=== PATIENT | male | born 1990 | race Caucasian/White ===

== ENCOUNTER 2022-03-10 16:24 | Emergency (ER) | payer OTHER ==
[~2022-03-10] VITALS: Ht 175.3 cm; Wt 106.6 kg
[~2022-03-10 16:24] MED LIST: METF-1274 PO
[2022-03-10 16:48] VITALS: BP 149/83
[2022-03-10] MEDS ORDERED: NACL 0.9% 1,000 ML IV ONE (17:15)
[2022-03-10 17:32] LABS: BASOPHILS % (AUTO) 0.4 % (0.0-2.0); EOSINOPHILS # (AUTO) 0.2 K/uL (0-0.4); EOSINOPHILS % (AUTO) 1.8 % (0.0-4.0); HEMATOCRIT 41.2 % (36-52); LYMPHOCYTES % (AUTO) 18.6 % (20.5-51.1); MEAN CORPUSCULAR HEMOGLOBIN 28 pg (27-31); MEAN CORPUSCULAR HGB CONC 34 g/dL (33-37); MEAN CORPUSCULAR VOLUME 83.3 fL (80-94); MONOCYTES # (AUTO) 0.9 K/uL (0.8-1.0); MONOCYTES % (AUTO) 8.3 % (1.7-9.3); NEUTROPHILS # (AUTO) 7.5 K/uL (1.8-7.7); NEUTROPHILS % (AUTO) 70.9 % (42.2-75.2); PLATELET COUNT (AUTO) 220 K/uL (140-450); RED BLOOD CELL COUNT(AUTO) 4.94 MIL/uL (4.20-6.10); RED CELL DISTRIBUTION WIDTH 13.5 % (11.6-13.7); WHITE BLOOD COUNT (AUTO) 10.6 K/uL (4.8-10.8)
[2022-03-10 17:43] LABS: ANION GAP 10.5 (8-16); CARBON DIOXIDE 28.5 mmol/L (21-32); CREATININE 0.9 mg/dL (0.6-1.3)
--- NOTE | 2022-03-10 18:04 | NUR ---
AT PT BEDSIDE
[2022-03-10] MEDS ORDERED: INSULIN REGULAR, HUMAN 100 UNIT/ML VIAL IVP ONE (18:05)
[2022-03-10] MEDS ORDERED: KETOROLAC 30 MG/ML VIAL IVP ONE (18:20)
--- NOTE | 2022-03-10 18:34 | NUR ---
32 Y/O MALE C/O RLQ ABD PAIN 05/16 REFERRED FROM URGENT CARE FOR "ELEVATED BLOOD SUGAR 294". BS IN TRIAGE 396. DENIES N/V. DENIES FEVER/CHILLS. PMH: WALLY HENRY TODAY
--- NOTE | 2022-03-10 18:38 | NUR ---
PT TAKEN TO XR VIA WC
[2022-03-10] MEDS ORDERED: IBUP-2213 PO (19:15)
[2022-03-10] MEDS ORDERED: PRED20TA5 PO (19:15)
--- NOTE | 2022-03-10 19:20 | NUR ---
Pt report given to SEDRICK MALDONADO. Transfer of care at this time.
[2022-03-10 20:00] VITALS: BP 133/70
--- NOTE | 2022-03-10 20:00 | NUR ---
Patient discharged with v/s stable. Written and verbal after care instructions given and explained. Patient alert, oriented and verbalized understanding of instructions. Ambulatory with steady gait. All questions addressed prior to discharge. ID band removed. Patient advised to follow up with PMD. Rx of IBUPROFEN AND PREDNISONE given.Opportunity to ask questions provided and answered.
== END 2022-03-10 20:00 | disposition home or self-care (01) ==
LOC: MED 16:24
DX: R05.9 Cough, unspecified (principal); R10.9 Unspecified abdominal pain; E11.65 Type 2 diabetes mellitus with hyperglycemia; F17.200 Nicotine dependence, unspecified, uncomplicated; Z79.84 Long term (current) use of oral hypoglycemic drugs; Z90.49 Acquired absence of other specified parts of digestive tract
CPT/HCPCS: 36415; 74176; 80048; 81002; 82948; 85025; 96361; 96374; 96375; 99284; J1815; J1885; J7030